=== PATIENT | male | born 1980 | race Caucasian/White ===

== ENCOUNTER 2017-10-16 19:08 | Emergency (ER) | payer BC ==
[~2017-10-16] VITALS: Ht 182.9 cm; Wt 90.6 kg
[~2017-10-16 19:08] MED LIST: MULT-506 PO
[2017-10-16 19:10] VITALS: TEMP 36.4; Ht 182.9 cm; Wt 90.6 kg
--- NOTE | 2017-10-16 19:37 | EMERGENCY ROOM VISIT NOTE ---
History Report prepared by Cinthya: Reza Werner Under the Supervision of: Dr. Clayton Flores M.D. First contact with patient: 19:14 Chief Complaint: MENTAL HEALTH EVALUATION Stated Complaint: DEPRESSED, PARANOID THOUGHTS WITH DRUG HX History of Present Illness The patient is a 36 year old male who presents to the Emergency Room with complaints of intermittent depression and "weird thoughts" that began a month ago. Patient is present with his fiance. Fiance states the patient's symptoms worsened yesterday. She states the patient feels like he is "being watched". She states the patient says there are "cameras in the TV that are recording him ", "cameras were placed in his truck", and "someone planted his SIM card in his phone". She adds the patient is hearing "voices from the radio" and that he thought a plane was following him after it flew over him today. Patient states that he used amphetamines today and yesterday. He states he took them today between 4 and 10 hours ago. Past medical history includes an opioid addiction. Patient states that the "adrenaline" allows birds to smell and follow him. Fiance states the patient believes her and his family are conspiring to get the patient into rehab. Patient states these occurrences are "a lot of coincidences ". Patient states he was in rehab at [facility] 2 years ago but denies being in rehab anytime prior to that. Patient states he takes Zoloft and Wellbutrin. Fiance states the patient has been taking Zoloft for 2 years since he was discharged from rehab. Patient adds he currently has a headache and heartburn. He states he uses pain pills off the street "for his addiction". He denies needing them for pain. Fiance adds the patient made a comment recently saying "he would be better off shooting himself". Patient denies SI, HI, IV drug use, or vision changes. Fiance adds that the patient has been picking his skin. Patient states he is a smoker. He denies alcohol use. Source of History: patient, spouse/significant other (Fiance) Onset: A month ago Position: head Timing: intermittent Modifying Factors (Relieving): other (None) Associated Symptoms: + headache Note: Positive heartburn. Negative SI and HI. Review of Systems See HPI for pertinent positives and negatives. A total of ten systems were reviewed and were otherwise negative. Past Medical & Surgical Medical Problems: (1) Asthma (2) Asthma, Unspecified Family History Hypertension Social History Smoking Status: Current Every Day Smoker Marital Status: single Housing Status: lives alone Occupation Status: employed Current/Historical Medications Scheduled Multivitamin (Multivitamin), 1 TAB PO DAILY Allergies Coded Allergies: No Known Allergies (Unverified , 08/06/13) Physical Exam Vital Signs Date Time Temp Pulse Resp B/P (MAP) Pulse Ox O2 Delivery O2 Flow Rate FiO2 10/16/17 21:27 87 18 128/82 98 10/16/17 19:10 36.4 104 18 134/85 99 Room Air Physical Exam GENERAL: Awake, alert, well-appearing, in no distress HENT: Normocephalic, atraumatic. Oropharynx unremarkable. EYES: Normal conjunctiva. Sclera non-icteric. NECK: Supple. No nuchal rigidity. RESPIRATORY: Clear to auscultation. No wheezes. Normal respiratory effort. CARDIAC: Normal rate. Normal rhythm. Extremities warm and well perfused. GI: Soft, non-distended. No tenderness to palpation. No rebound or guarding. No masses. RECTAL: Deferred. MUSCULOSKELETAL: Atraumatic. Chest examination reveals no tenderness. There is no CVA tenderness to palpation. LOWER EXTREMITIES: Calves are equal size bilaterally and non-tender. No edema NEURO: Normal sensorium. No sensory or motor deficits noted. SKIN: Small diffuse scabs without evidence fluctuance or erythema otherwise warm and dry; . No jaundice noted. States this is related to prior picking. Psych: No SI HI. Does endorse occasional auditory hallucinations but does not appear to be responding to external stimuli. Normal affect. Medical Decision & Procedures Laboratory Results 10/16/17 19:50 Red Blood Count 5.27, Mean Corpuscular Volume 81.6, Mean Corpuscular Hemoglobin 27.7, Mean Corpuscular Hemoglobin Concent 34.0, Mean Platelet Volume 8.5, Neutrophils (%) (Auto) 60.3, Lymphocytes (%) (Auto) 26.9, Monocytes (%) (Auto) 8.3, Eosinophils (%) (Auto) 3.7, Basophils (%) (Auto) 0.7, Neutrophils # (Auto) 4.08, Lymphocytes # (Auto) 1.82, Monocytes # (Auto) 0.56, Eosinophils # (Auto) 0.25, Basophils # (Auto) 0.05 10/16/17 19:50 Test 10/16/17 00:00 10/16/17 19:50 Urine Color DK YELLOW Urine Appearance TURBID (CLEAR) Urine pH 5.0 (4.5-7.5) Urine Specific [place] 1.034 (1.000-1.030) Urine Protein 1+ (NEG) Urine Glucose (UA) NEG (NEG) Urine Ketones TRACE (NEG) Urine Occult Blood NEG (NEG) Urine Nitrite NEG (NEG) Urine Bilirubin NEG (NEG) Urine Urobilinogen NEG (NEG) Urine Leukocyte Esterase NEG (NEG) Urine WBC (Auto) 5-10 /hpf (0-5) Urine RBC (Auto) 5-10 /hpf (0-4) Urine Hyaline Casts (Auto) 5-10 /lpf (0-5) Urine Epithelial Cells (Auto) 20-30 /lpf (0-5) Urine Bacteria (Auto) NEG (NEG) Urine Pathogenic Casts 0-3 GRANULAR CASTS /lpf (0) Urine Mucus PRESENT (NONE PRSENT) Urine Sperm (Auto) PRESENT (NOT PRESENT) Urine Opiates Screen NEG (NEG) Urine Methadone, Qualitative NEG (NEG) Urine Barbiturates NEG (NEG) Urine Phencyclidine (PCP) Level NEG (NEG) Ur Amphetamine/Methamphetamine POS (NEG) MDMA (Ecstasy) Screen POS (NEG) Urine Benzodiazepines Screen POS (NEG) Urine Cocaine Metabolite NEG (NEG) Urine Marijuana (THC) NEG (NEG) White Blood Count 6.77 K/uL (4.8-10.8) Red Blood Count 5.27 M/uL (4.7-6.1) Hemoglobin 14.6 g/dL (14.0-18.0) Hematocrit 43.0 % (42-52) Mean Corpuscular Volume 81.6 fL (80-100) Mean Corpuscular Hemoglobin 27.7 pg (25-34) Mean Corpuscular Hemoglobin Concent 34.0 g/dl (32-36) Platelet Count 242 K/uL (130-400) Mean Platelet Volume 8.5 fL (7.4-10.4) Neutrophils (%) (Auto) 60.3 % Lymphocytes (%) (Auto) 26.9 % Monocytes (%) (Auto) 8.3 % Eosinophils (%) (Auto) 3.7 % Basophils (%) (Auto) 0.7 % Neutrophils # (Auto) 4.08 K/uL (1.4-6.5) Lymphocytes # (Auto) 1.82 K/uL (1.2-3.4) Monocytes # (Auto) 0.56 K/uL (0.11-0.59) Eosinophils # (Auto) 0.25 K/uL (0-0.5) Basophils # (Auto) 0.05 K/uL (0-0.2) RDW Standard Deviation 35.6 fL (36.4-46.3) RDW Coefficient of Variation 12.1 % (11.5-14.5) Immature Granulocyte % (Auto) 0.1 % Immature Granulocyte # (Auto) 0.01 K/uL (0.00-0.02) Anion Gap 6.0 mmol/L (3-11) Est Creatinine Clear Calc Drug Dose 132.2 ml/min Estimated GFR () 129.6 Estimated GFR (Non- 111.9 BUN/Creatinine Ratio 17.7 (10-20) Calcium Level 8.4 mg/dl (8.5-10.1) Total Bilirubin 0.4 mg/dl (0.2-1) Direct Bilirubin 0.1 mg/dl (0-0.2) Aspartate Amino Transf (AST/SGOT) 9 U/L (15-37) Alanine Aminotransferase (ALT/SGPT) 21 U/L (12-78) Alkaline Phosphatase 84 U/L (45-117) Total Protein 6.7 gm/dl (6.4-8.2) Albumin 3.9 gm/dl (3.4-5.0) Thyroid Stimulating Hormone (TSH) 0.686 uIu/ml (0.300-4.500) Ethyl Alcohol mg/dL < 3.0 mg/dl (0-3) Laboratory results reviewed by [facility] ED Course 1913: The patient was evaluated in room A7. A complete history and physical exam was performed. 2138: I reevaluated the patient. Discussed results and discharge instructions. He verbalized understanding and agreement. The patient is ready for discharge. Medical Decision Prior records/ancillary studies reviewed. Triage Nursing notes reviewed. The patient's history was concerning for possible psychiatric disturbance. Differential diagnosis: Etiologies such as mood disorder, infection, hypoglycemia, electrolyte abnormalities, cardiac sources, intracerebral event, toxicologic, neurologic, as well as others were entertained. Patient presents complaining of issues with hallucinations and paranoia over the past month were significantly with the past day. Significantly he has a history of opioid abuse the pain pills for addiction along with amphetamine use. Endorses amphetamine use earlier today. Denies any acute homicidal ideation. Denies suicidal ideation at this time. He states that he feels somewhat anxious and concerned that people and things are watching him. Basic medical psychiatric workup was completed including thyroid studies and drug screening. Grossly unremarkable other than the positive drug screen. Do not see acute inpatient need for psychiatric care at this time. Believe his paranoia and hallucinations are likely secondary to his amphetamine/drug use.Discussed with patient and danielle who feel comfort with him going home with outpatient resources. Discharge. Medication Reconcilliation Current Medication List: was personally reviewed by me Blood Pressure Screening Patient's blood pressure: Normal blood pressure Blood pressure disposition: Did not require urgent referral Impression Primary Impression: Drug-induced paranoia or hallucinations Scribe Attestation The scribe's documentation has been prepared under my direction and personally reviewed by me in its entirety. I confirm that the note above accurately reflects all work, treatment, procedures, and medical decision making performed by me. Departure Information Dispostion Home / Self-Care Referrals Sinan Arriaga D.O. (PCP) Forms HOME CARE DOCUMENTATION FORM, IMPORTANT VISIT INFORMATION Patient Instructions My [facility] Additional Instructions At this time your blood work is reassuring however does indicate that she was admitted there was some drug use. This is likely the primary lumber driver of your paranoia and hallucinations. At this time the most important thing you can do is to abstain from drug use going forward. If at any time you feel unsafe or thoughts of harming herself or others please return for evaluation. Please seek continued assistance with drug abuse.
[2017-10-16 20:07] LABS: BASO % 0.7 %; BASO ABS # 0.05 K/uL (0-0.2); EOS % 3.7 %; EOS ABS # 0.25 K/uL (0-0.5); HEMOGLOBIN 14.6 g/dL (14.0-18.0); IG# 0.01 K/uL (0.00-0.02); LYMPH % 26.9 %; LYMPH ABS # 1.82 K/uL (1.2-3.4); MEAN CELL VOLUME 81.6 fL (80-100); MEAN CORPUSCULAR HEMOGLOBIN 27.7 pg (25-34); MEAN PLATELET VOLUME 8.5 fL (7.4-10.4); MONO % 8.3 %; MONO ABS # 0.56 K/uL (0.11-0.59); NEUT % 60.3 %; NEUT ABS # 4.08 K/uL (1.4-6.5); PLATELET COUNT 242 K/uL (130-400); RED CELL DISTRIBUTION WIDTH CV 12.1 % (11.5-14.5); RED CELL DISTRIBUTION WIDTH SD 35.6 fL (36.4-46.3); WHITE BLOOD COUNT 6.77 K/uL (4.8-10.8)
[2017-10-16 20:37] LABS: ALBUMIN 3.9 gm/dl (3.4-5.0); CALCIUM 8.4 mg/dl (8.5-10.1); CREATININE 0.84 mg/dl (0.60-1.40); TOTAL PROTEIN 6.7 gm/dl (6.4-8.2)
[2017-10-16 21:27] VITALS: BP 128/82; PULSE 87; O2SAT 98
== END 2017-10-16 21:30 | disposition home or self-care (01) ==
LOC: C.EDB 19:08 → C.EDA 21:30
DX: F19.959 Other psychoactive substance use, unspecified with psychoactive substance-induced psychotic disorder, unspecified (principal); F32.9 Major depressive disorder, single episode, unspecified; R51 Headache; R12 Heartburn; J45.909 Unspecified asthma, uncomplicated; F17.200 Nicotine dependence, unspecified, uncomplicated

== ENCOUNTER 2023-03-08 01:09 | Observation (INO) ==
[2023-03-08] MEDS ORDERED: ALBUT/IPRATROP 3MG/0.5MG NEB 3 ML VIAL NEB STA ×2 (01:52→04:14)
[2023-03-08 02:18] LABS: Adenovirus PCR Not Detected (NotDetected); Bordetella parapertussis PCR Not Detected (NotDetected); Bordetella pertussis PCR Not Detected (NotDetected); Chlamydia pneumoniae PCR Not Detected (NotDetected); Coronavirus 229E PCR Not Detected (NotDetected); Coronavirus CoV-2 (COVID19)PCR Not Detected (NotDetected); Coronavirus HKU1 PCR Not Detected (NotDetected); Coronavirus NL63 PCR Not Detected (NotDetected); Coronavirus OC43PCR Not Detected (NotDetected); Human Metapneumovirus PCR Not Detected (NotDetected); Influenza A PCR Not Detected (NotDetected); Influenza B PCR Not Detected (NotDetected); Mycoplasma pneumoniae PCR Not Detected (NotDetected); Parainfluenza Virus 1 PCR Not Detected (NotDetected); Parainfluenza Virus 2 PCR Not Detected (NotDetected); Parainfluenza Virus 3 PCR Not Detected (NotDetected); Parainfluenza Virus 4 PCR Not Detected (NotDetected); Respiratory Syncytial VirusPCR Not Detected (NotDetected)
[2023-03-08 02:25] LABS: Rhinovirus/Enterovirus PCR DETECTED (NotDetected)
--- NOTE | 2023-03-08 02:47 | Emergency Department Note ---
Impression & Plan Dyspnea, Pneumonia, URI (upper respiratory infection), Hyperglycemia, Hemoptysis ED Provider Note ED Provider Note NAME: KAVEH PIZANO AGE:42 SEX: Male : 1980 ARRIVES VIA: private vehicle INFORMANT: Patient ED PROVIDER(s): Dania Richardson DO CHIEF COMPLAINT: Increased shortness of breath HPI: This is a 42-year-old male who presents emergency room due to increased shortness of breath today. Patient states he said cough and congestive symptoms over the last 2 to 3 days. He states symptoms first began with subjective fevers and chills and diffuse myalgias/arthralgias. He states he is also had left-sided chest tightness and pain. He states he feels is harder to breathe with exertion as well as trying to lay flat. Patient is a remote smoker, no history of asthma or COPD. No known sick contact. He states he has had a decreased appetite, no overt vomiting and diarrhea. PAST MEDICAL HISTORY:See Below PAST SURGICAL HISTORY:See Below FAMILY HISTORY:See Below SOCIAL HISTORY:See Below HOME MEDICATIONS:See Below ALLERGIES:See Below VITALS:See Below PHYSICAL EXAMINATION: GENERAL: alert, well appearing, well nourished, no distress, non-toxic EYE EXAM: normal conjunctiva, PERRL and EOM's grossly intact OROPHARYNX: no exudate, no erythema, lips, buccal mucosa, and tongue normal and mucous membranes are moist NECK: supple, no nuchal rigidity, no adenopathy, non-tender LUNGS: Clear to auscultation. Normal chest wall mechanics, no w/r, decreased breath sounds noted at left base with fine rales at the left base also; no tachypnea, no retractions HEART: no murmurs, S1 normal and S2 normal ABDOMEN: abdomen soft, non-tender, normo-active bowel sounds, no masses, no rebound or guarding. BACK: Back is symmetrical on inspection and there is no deformity, no midline tenderness, no CVA tenderness. SKIN: no rashes, petechiae, orbruising UPPER EXTREMITIES: upper extremities are grossly normal. FROM, nml pulses b/l. LOWER EXTREMITIES: No pitting edema. FROM, nml pulses b/l. NEURO EXAM: Normal sensorium, cranial nerves II-XII grossly intact, normal speech, no facial droop,nogross weakness of arms, no gross weakness of legs. Gross sensation intact. No ataxia. Vital Signs: reviewed and remarkable Differential Diagnosis: pneumonia, bronchitis, COPD/Asthma exacerbation, pneumothorax, pulmonary embolism, congestive heart failure, acute coronary syndrome, as well as others were considered MEDICAL DECISION MAKING: This is a 42 yo male who presents with flu like symptoms over the last 3 days and increased SOB and chest pain this evening. VS stable, tachycardia noted, no hypoxia on arrival. Labs drawn and sent, IV established, EKG and CXR performed and interpreted at bedside, and patient placed on telemetry. CXR with concerning findings for pna. Patient given IVF, neb tx, tylenol, toradol, decadron, and began feeling improved. He was ambulatory here and tolerated po. After several hours of observation and treatment here, patient reported hemoptysis which he had not previously disclosed. No use of antiplatelet or anticoagulation medications. After discussion he was sent for CT chest which revealed multilobar pna. Given hx of DM and former smoker and more extensive pna seen on CT, we discussed additional inpatient evaluation. Case discussed with [place] hospitalist for additional evaluation and mgmt. Consultation(s): 814: Discussed with Dr. Liu, [place] hospitalist team, for additional evaluation and mgmt. ER Treatment Provided: See below 0630: Patient states feeling improved and able to lay back after nebs and medications. He was able to walk without hypoxia or increased WOB. Patient now also stating he had hemoptysis at home before arrival and had 2 episodes here that were not reported to me by the patient until this time. We discussed the need for further imaging in light of this. CT chest added. Diagnostics Interpreted By Me: -ECG: Sinus tachycardia at 102, normal axis, normal intervals, no acute ST/T wave changes -Cardiac Monitoring: An order was placed for continuous cardiac monitoring. The monitor shows a rate of 98 with normal sinus rhythm. -Laboratory studies: As stated above and show below. -Imaging studies: X-ray Chest: A single view study of the chest was reviewed and was negative for cardiomegaly, effusion, pulmonary edema, or wide mediastinum. Infiltrate noted in the left lung. 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 Preferred Language: Estonian Communication Ability: Effective Poker Room Manager Required: No Beliefs That Will Affect Care: None marital status: Current Living Situation: Spouse Other Information That Helps Us Care for You: No Feels Safe at Home: Yes Safety Concerns: Feels Safe At This Time Assistive Devices: Glasses Allergies Allergies Allergy/AdvReac Type Severity Reaction Status Date / Time No Known Allergies Allergy Verified 03/08/23 02:51 Home Meds Home Medications Medication Instructions Recorded Confirmed ibuprofen 200 mg tablet (Advil) 200 - 600 mg PO DIRECTED PRN 12/07/17 03/08/23 Pain multivitamin 1 tab PO DAILY 12/07/17 03/08/23 omeprazole 40 mg capsule,delayed 40 mg PO DAILY PRN Acid Reflux 12/07/17 03/08/23 release cetirizine 10 mg tablet (Zyrtec) 10 mg PO DAILY PRN allergies 02/23/23 03/08/23 fluoxetine 40 mg capsule 80 mg PO QAM 02/23/23 03/08/23 losartan 50 mg tablet 50 mg PO DAILY 02/23/23 03/08/23 metformin 500 mg tablet 500 mg PO QAM 02/23/23 03/08/23 Results & Data (ED) Vital Signs Vital Signs - 24 hr 03/08/23 01:13 03/08/23 02:35 03/08/23 02:35 Temperature 37.2 C Temperature Source Oral Pulse Rate 109 H 110 H 109 H Pulse Rate [Exercises] Pulse Rate [Recovery] Pulse Rate [Resting] Pulse Rate [Right Finger] Pulse Rate from SpO2 Sensor Pulse Rhythm [Right Finger] Respiratory Rate 20 12 Respiratory Rate [Exercises] Respiratory Rate [Recovery] Respiratory Rate [Resting] Respiratory Effort / Characteristics Non-Labored Spontaneous Respiratory Depth Normal Blood Pressure 146/80 H 138/80 Blood Pressure [Right Arm] Blood Pressure Mean 102 99 Blood Pressure Mean [Right Arm] Pulse Oximetry 97 92 Pulse Oximetry [Exercises] Pulse Oximetry [Recovery] Pulse Oximetry [Resting] Oxygen Delivery Method Room Air Sepsis Recent Fever Within 48 Hours Yes Sepsis New/Unexplained Change in Mental Status N/A Sepsis Action Taken by Nursing No Action Required 03/08/23 03:00 03/08/23 03:30 03/08/23 04:00 Temperature Temperature Source Pulse Rate Pulse Rate [Exercises] Pulse Rate [Recovery] Pulse Rate [Resting] Pulse Rate [Right Finger] Pulse Rate from SpO2 Sensor 107 H 103 H 103 H Pulse Rhythm [Right Finger] Respiratory Rate 18 16 18 Respiratory Rate [Exercises] Respiratory Rate [Recovery] Respiratory Rate [Resting] Respiratory Effort / Characteristics Respiratory Depth Blood Pressure 144/91 H 103/73 157/99 H Blood Pressure [Right Arm] Blood Pressure Mean 108 83 118 Blood Pressure Mean [Right Arm] Pulse Oximetry 93 93 92 Pulse Oximetry [Exercises] Pulse Oximetry [Recovery] Pulse Oximetry [Resting] Oxygen Delivery Method Sepsis Recent Fever Within 48 Hours Sepsis New/Unexplained Change in Mental Status Sepsis Action Taken by Nursing 03/08/23 04:36 03/08/23 07:01 03/08/23 07:23 Temperature Temperature Source Pulse Rate Pulse Rate [Exercises] 95 H Pulse Rate [Recovery] 89 Pulse Rate [Resting] 85 Pulse Rate [Right Finger] 83 Pulse Rate from SpO2 Sensor 99 H Pulse Rhythm [Right Finger] Regular Respiratory Rate 12 Respiratory Rate [Exercises] 20 Respiratory Rate [Recovery] 18 Respiratory Rate [Resting] 18 Respiratory Effort / Characteristics Respiratory Depth Blood Pressure Blood Pressure [Right Arm] 139/79 Blood Pressure Mean Blood Pressure Mean [Right Arm] 99 Pulse Oximetry 93 95 Pulse Oximetry [Exercises] 94 Pulse Oximetry [Recovery] 95 Pulse Oximetry [Resting] 98 Oxygen Delivery Method Room Air Room Air Sepsis Recent Fever Within 48 Hours Sepsis New/Unexplained Change in Mental Status Sepsis Action Taken by Nursing Laboratory Data 03/08/23 02:17 03/08/23 02:17 Lab Results 03/08/23 03/08/23 03/08/23 Range/Units 01:15 02:17 08:19 WBC 12.14 H (4.8-10.8) K/ul RBC 4.73 (4.70-6.10) M/uL Hgb 13.0 L (14.0-18.0) g/dl Hct 39.6 L (42.0-52.0) % MCV 83.7 (80.0-100.0) fL MCH 27.5 (25.0-34.0) pg MCHC 32.8 (32.0-36.0) g/dL RDW Std Deviation 37.0 (36.4-46.3) fL RDW Coeff of Rosita 12.1 (11.5-14.5) % Plt Count 207 (130-400) K/uL MPV 9.2 L (9.4-12.4) fL Immature Gran % (Auto) 0.9 % Neut % (Auto) 84.1 % Lymph % (Auto) 5.8 % Jerauld % (Auto) 8.6 % Eos % (Auto) 0.3 % Baso % (Auto) 0.3 % Neut # (Auto) 10.19 H (1.40-6.50) K/uL Lymph # (Auto) 0.71 L (1.20-3.40) K/uL Jerauld # (Auto) 1.05 H (0.11-0.59) K/uL Eos # (Auto) 0.04 (0.00-0.50) K/uL Baso # (Auto) 0.04 (0.00-0.20) K/uL Immature Gran # (Auto) 0.11 (0.01-0.20) K/uL Dohle Bodies 1+ PT 10.9 (9.0-12.0) Seconds INR 1.0 (0.9-1.1) APTT 36 H (21-31) Seconds PTT Ratio 1.3 Sodium 134 L (136-145) mmol/L Potassium 4.2 (3.5-5.1) mmol/L Chloride 103 (98-107) mmol/L Carbon Dioxide 22 (21-32) mmol/L Anion Gap 9 (3-11) BUN 8 (6-23) mg/dl Creatinine 0.63 (0.6-1.4) mg/dl Est Cr Clr Drug Dosing 199.9 ml/min Est GFR ( Amer) 139.9 ml/min Est GFR (Non-Af Amer) 120.7 ml/min BUN/Creatinine Ratio 12.7 (10-20) Glucose 229 H (70-99(Fasting)) mg/dl Calcium 9.5 (8.6-10.3) mg/dl Magnesium 1.7 (1.7-2.4) mg/dl Total Bilirubin 1.0 (0.2-1.0) mg/dl AST 13 (13-39) U/L ALT 54 H (7-52) U/L Alkaline Phosphatase 73 (34-104) U/L Troponin I High Sens 4.7 (0-20) pg/ml Total Protein 7.0 (6.0-8.3) gm/dl Albumin 4.2 (3.4-5.0) gm/dl Globulin 2.8 (2.5-4.0) gm/dl Albumin/Globulin Ratio 1.5 (0.9-2) Lipase 7 L (11-82) U/L Procalcitonin 0.58 H (0-0.5) ng/ml Nasal Screen MRSA (PCR) Negative (Negative) Adenovirus (PCR) Not Detected (NotDetected) B. pertussis DNA (PCR) Not Detected (NotDetected) B.parapertussis DNA PCR Not Detected (NotDetected) C. pneumoniae DNA (PCR) Not Detected (NotDetected) Coronavirus OC43 (PCR) Not Detected (NotDetected) Coronavirus HKU1 (PCR) Not Detected (NotDetected) Coronavirus 229E (PCR) Not Detected (NotDetected) SARS-CoV-2 (PCR) Not Detected (NotDetected) Coronavirus NL63 (PCR) Not Detected (NotDetected) Human Metapneumovir PCR Not Detected (NotDetected) Influenza Type A (PCR) Not Detected (NotDetected) Influenza Type B (PCR) Not Detected (NotDetected) M. pneumoniae (PCR) Not Detected (NotDetected) Parainfluenza 1 (PCR) Not Detected (NotDetected) Parainfluenza 2 (PCR) Not Detected (NotDetected) Parainfluenza 3 (PCR) Not Detected (NotDetected) Parainfluenza 4 (PCR) Not Detected (NotDetected) RSV (PCR) Not Detected (NotDetected) Entero/Rhino (PCR) DETECTED A* (NotDetected) Administered Medications Acetaminophen (Acetaminophen 325 Mg Tab) 650 mg PO Q4H PRN PRN Reason: pain/fever Stop: 04/07/23 11:00 Last Admin: 03/08/23 21:56 Dose: 650 mg Documented By: LUIS ARMANDO Admin: 03/08/23 16:44 Dose: 650 mg Documented By: Admin: 03/08/23 11:45 Dose: 650 mg Documented By: MAYELA Fluoxetine HCl (Fluoxetine Hcl 20 Mg Cap) 40 mg PO QAM [facility] Stop: 04/07/23 11:00 Last Admin: 03/08/23 12:02 Dose: 40 mg Documented By: MAYELA Insulin Aspart (Insulin Aspart Per Unit Charge) 0 units SC ACHS [facility] Stop: 04/07/23 11:29 Last Admin: 03/08/23 21:28 Dose: Not Given Documented By: LUIS ARMANDO Co-signed By: JUAN Admin: 03/08/23 16:52 Dose: 5 units Documented By: MAYELA Co-signed By: JO Admin: 03/08/23 11:46 Dose: 9 units Documented By: MAYELA Co-signed By: JO Insulin Glargine (Lantus Per Unit Charge) 15 units SQ DAILY [facility] Stop: 04/07/23 11:00 Last Admin: 03/08/23 11:46 Dose: 15 units Documented By: MAYELA Co-signed By: JO Losartan Potassium (Losartan Potassium 50 Mg Tab) 50 mg PO DAILY [facility] Stop: 04/07/23 11:00 Last Admin: 03/08/23 12:02 Dose: 50 mg Documented By: MAYELA Melatonin (Melatonin 3 Mg Tab) 3 mg PO HS PRN PRN Reason: Insomnia Stop: 04/07/23 11:00 Last Admin: 03/08/23 21:55 Dose: 3 mg Documented By: LUIS ARMANDO Menthol (Cough Drop (Sugar Free) Shahzad 24 Shahzad/1 Box) 1 shahzad BUCCAL PRN PRN PRN Reason: Sore Throat Stop: 04/07/23 16:44 Last Admin: 03/08/23 16:52 Dose: 1 shahzad Documented By: MAYELA Discontinued Medications Albuterol (Albut/Ipratrop 3mg/0.5mg Neb 3 Ml Vial) 3 ml NEB NOW STA; Protocol Stop: 03/08/23 01:53 Last Admin: 03/08/23 02:16 Dose: 3 ml Documented By: SHANNAN Albuterol (Albut/Ipratrop 3mg/0.5mg Neb 3 Ml Vial) 3 ml NEB NOW STA; Protocol Stop: 03/08/23 04:15 Last Admin: 03/08/23 04:37 Dose: 3 ml Documented By: SHANNAN Azithromycin (Azithromycin 250 Mg Tab) 500 mg PO NOW ONE Stop: 03/08/23 07:50 Last Admin: 03/08/23 08:11 Dose: 500 mg Documented By: VAL Dexamethasone Sodium Phosphate (DexamethasonePf 10 Mg/Ml Vial) 10 mg IV NOW ONE Stop: 03/08/23 02:50 Last Admin: 03/08/23 03:06 Dose: 10 mg Documented By: SHANNAN Sodium Chloride (Nss) 1,000 mls @ 999 mls/hr IV .Q1H1M ONE Stop: 03/08/23 03:54 Last Infusion: 03/08/23 06:45 Dose: Infused Documented By: Admin: 03/08/23 03:06 Dose: 999 mls/hr Documented By: SHANNAN Acetaminophen (Ofirmev) 1,000 mg in 100 mls @ 400 mls/hr IV NOW STA Stop: 03/08/23 05:12 Last Infusion: 03/08/23 06:45 Dose: Infused Documented By: Admin: 03/08/23 05:24 Dose: 400 mls/hr Documented By: SHANNAN Sodium Chloride (Nss) 1,000 mls @ 999 mls/hr IV .Q1H1M ONE Stop: 03/08/23 05:58 Last Infusion: 03/08/23 06:45 Dose: Infused Documented By: Admin: 03/08/23 05:24 Dose: 999 mls/hr Documented By: SHANNAN Ceftriaxone Sodium (Rocephin) 2,000 mg in 50 mls @ 100 mls/hr IV NOW STA Stop: 03/08/23 08:18 Last Infusion: 03/08/23 09:30 Dose: Infused Documented By: Admin: 03/08/23 08:11 Dose: 100 mls/hr Documented By: VAL Ioversol (Optiray 320 125ml) 119 ml IV ONCE ONE Stop: 03/08/23 07:10 Last Admin: 03/08/23 07:09 Dose: 119 ml Documented By: TOM Ketorolac Tromethamine (Ketorolac Tromethamine 15 Mg/Ml Vial) 10 mg IV NOW ONE Stop: 03/08/23 02:51 Last Admin: 03/08/23 03:06 Dose: 10 mg Documented By: SHANNAN Imaging Data Radiologist's Impression: Chest X-Ray 03/08/23 01:23 XR chest 1V not portable CLINICAL HISTORY: Cough. COMPARISON STUDY: Chest radiograph December 07, 2017. FINDINGS: Lung volumes are normal. Left mid lung and basilar consolidation is present. There is no pneumothorax or pleural effusion. There is mild enlargement of the cardiac silhouette. Mediastinal contours are normal. There is no evidence for pulmonary edema. IMPRESSION: Left midlung and basilar consolidation consistent suggestive of pneumonia. Post treatment radiographs to ensure resolution are recommended. ACT 112: Negative or not required by law. Electronically signed by: Manny Lay M.D. 03/08/2023 6:48 AM Chest CTA 03/08/23 06:50 CT ANGIOGRAPHY OF THE CHEST, PULMONARY EMBOLUS PROTOCOL CLINICAL HISTORY: Cough. COMPARISON STUDY: Chest radiograph December 07, 2017 and March 08, 2023. TECHNIQUE: Following IV administration of 119 mL of Optiray, helical axial images of the chest were obtained utilizing the pulmonary embolus protocol. Maximal intensity projections and sagittal and coronal reformats were viewed on an independent 3D workstation. IV contrast was administered without complication. Automated exposure control was utilized for the study. A dose lowering technique was utilized adhering to the principles of ALARA. CT DOSE: 1947.22 mGy.cm FINDINGS: No pulmonary emboli are identified. Mild dilatation of the central pulmonary arteries is present. There is no thoracic aortic dissection. There is mild cardiomegaly. No pericardial effusion is present. Mildly enlarged left hilar lymph node measures 1.6 x 1.4 cm. There are prominent mediastinal lymph nodes. No pneumothorax or pleural effusion is present. No central obstructing mass is noted. There is extensive multifocal consolidation within the left upper and left lower lobes. No cavitation is present. There is no associated pleural effusion. A 1.7 cm nodular right middle lobe opacity on image 100 of 249 is present. No acute fractures within the bony thorax are present. There is hepatic steatosis. Mild splenomegaly is noted. IMPRESSION: 1. No pulmonary emboli identified. 2. Extensive left upper and left lower lobe airspace opacity suggestive of multifocal pneumonia. 3. 1.7 cm nodular right middle lobe opacity. This may be infectious or atelectatic. Although less likely, a neoplasm cannot be completely excluded. A follow-up chest CT in one to 2 months to ensure resolution is recommended. 4. Mildly enlarged mediastinal and left hilar lymph nodes which are likely reactive but should be assessed on follow-up chest CT to ensure resolution. 5. Mild cardiomegaly. 5. Hepatic steatosis. ACT 112: Positive. There are findings on this exam that require communication between the performing entity and the patient following Patient Test Result Information Act ([place] Act 112) guidelines. Electronically signed by: Manny Lay M.D. 03/08/2023 7:34 AM Discharge Plan Visit Data Chief Complaint: Illness Stated Complaint: MILD TEMP,ACHES/PAINS,SOB,CRACKLING ON EXHALE ED Provider: Dania Richardson Discharge Problem: Dyspnea, Pneumonia, URI (upper respiratory infection), Hyperglycemia, Hemoptysis Patient Disposition: Admitted As Inpatient Discharge Instructions Interventions: ED Discharge Assessment Last Done: 03/08/23 10:48
[2023-03-08] MEDS ORDERED: dexAMETHasone**PF** 10 MG/ML VIAL IV ONE (02:49)
[2023-03-08] MEDS ORDERED: KETOROLAC TROMETHAMINE 15 MG/ML VIAL IV ONE (02:50)
[2023-03-08] MEDS ORDERED: SODIUM CHLORIDE 0.9% 1,000 ML IV ONE ×2 (02:54→04:58)
[2023-03-08 02:56] LABS: Albumin Globulin Ratio 1.5 (0.9-2); Albumin Level 4.2 gm/dl (3.4-5.0); BUN Creatinine Ratio 12.7 (10-20); Calcium 9.5 mg/dl (8.6-10.3); Creatinine Clr Calc Pharmacy 199.9 ml/min; Est GFR (African American) 139.9 ml/min; Est GFR (Non-African American) 120.7 ml/min; Globulin 2.8 gm/dl (2.5-4.0); Magnesium 1.7 mg/dl (1.7-2.4); Potassium 4.2 mmol/L (3.5-5.1)
[2023-03-08 03:03] LABS: Troponin I High Sensitivity 4.7 pg/ml (0-20)
[2023-03-08 03:04] LABS: Hematocrit (blood only) 39.6 % (42.0-52.0); Mean Corpuscular Hemoglobin 27.5 pg (25.0-34.0); Mean Corpuscular Hgb Conc 32.8 g/dL (32.0-36.0); Mean Corpuscular Volume 83.7 fL (80.0-100.0); Mean Platelet Volume 9.2 fL (9.4-12.4); Platelet Count 207 K/uL (130-400); RDW Coefficient of Variation 12.1 % (11.5-14.5); Red Blood Count 4.73 M/uL (4.70-6.10); White Blood Count 12.14 K/ul (4.8-10.8)
[2023-03-08 03:30] LABS: Basophils # (auto) 0.04 K/uL (0.00-0.20); Basophils % (auto) 0.3 %; Dohle Bodies 1+; Eosinophils # (auto) 0.04 K/uL (0.00-0.50); Eosinophils % (auto) 0.3 %; Immature Granulocytes # (auto) 0.11 K/uL (0.01-0.20); Immature Granulocytes % (auto) 0.9 %; Lymphocytes # (auto) 0.71 K/uL (1.20-3.40); Lymphocytes % (auto) 5.8 %; Monocytes # (auto) 1.05 K/uL (0.11-0.59); Monocytes % (auto) 8.6 %; Neutrophils # (auto) 10.19 K/uL (1.40-6.50); Neutrophils % (auto) 84.1 %
[2023-03-08] MEDS ORDERED: ACETAMINOPHEN 1,000 MG/100 ML VIAL IV STA (04:58)
--- NOTE | 2023-03-08 06:50 | XRay Report ---
XR chest 1V not portable CLINICAL HISTORY: Cough. COMPARISON STUDY: Chest radiograph December 07, 2017. FINDINGS: Lung volumes are normal. Left mid lung and basilar consolidation is present. There is no pn eumothorax or pleural effusion. There is mild enlargement of the cardiac silhouette. Mediastinal cont ours are normal. There is no evidence for pulmonary edema. IMPRESSION: Left midlung and basilar consolidation consistent suggestive of pneumonia. Post treatment radiographs to ensure resolution are recommended. ACT 112: Negative or not required by law. Electronically signed by: Manny Lay M.D. 03/08/2023 6:48 AM
[2023-03-08] MEDS ORDERED: OPTIRAY 320 125ml IV ONE (07:09)
--- NOTE | 2023-03-08 07:35 | CT Scan Report ---
CT ANGIOGRAPHY OF THE CHEST, PULMONARY EMBOLUS PROTOCOL CLINICAL HISTORY: Cough. COMPARISON STUDY: Chest radiograph December 07, 2017 and March 08, 2023. TECHNIQUE: Following IV administration of 119 mL of Optiray, helical axial images of the chest were o btained utilizing the pulmonary embolus protocol. Maximal intensity projections and sagittal and cor onal reformats were viewed on an independent 3D workstation. IV contrast was administered without co mplication. Automated exposure control was utilized for the study. A dose lowering technique was ut ilized adhering to the principles of ALARA. CT DOSE: 1947.22 mGy.cm FINDINGS: No pulmonary emboli are identified. Mild dilatation of the central pulmonary arteries is p resent. There is no thoracic aortic dissection. There is mild cardiomegaly. No pericardial effusion i s present. Mildly enlarged left hilar lymph node measures 1.6 x 1.4 cm. There are prominent mediastin al lymph nodes. No pneumothorax or pleural effusion is present. No central obstructing mass is noted. There is extensive multifocal consolidation within the left upper and left lower lobes. No cavitatio n is present. There is no associated pleural effusion. A 1.7 cm nodular right middle lobe opacity on image 100 of 249 is present. No acute fractures within the bony thorax are present. There is hepatic steatosis. Mild splenomegaly is noted. IMPRESSION: 1. No pulmonary emboli identified. 2. Extensive left upper and left lower lobe airspace opacity suggestive of multifocal pneumonia. 3. 1.7 cm nodular right middle lobe opacity. This may be infectious or atelectatic. Although less lik sena, a neoplasm cannot be completely excluded. A follow-up chest CT in one to 2 months to ensure reso lution is recommended. 4. Mildly enlarged mediastinal and left hilar lymph nodes which are likely reactive but should be ass essed on follow-up chest CT to ensure resolution. 5. Mild cardiomegaly. 5. Hepatic steatosis. ACT 112: Positive. There are findings on this exam that require communication between the performing entity and the patient following Patient Test Result Information Act ([place] Act 112) guidelines. Electronically signed by: Manny Lay M.D. 03/08/2023 7:34 AM
[2023-03-08] MEDS ORDERED: AZITHROMYCIN 250 MG TAB PO ONE (07:49)
[2023-03-08] MEDS ORDERED: cefTRIAXone SODIUM 2,000 MG/50 ML BAG IV STA (07:49)
--- NOTE | 2023-03-08 08:26 | History & Physical Report ---
Date of Service March 08, 2023 Assessment & Plan (1) Pneumonia: Plan: Severe multifocal left sided pneumonia - ALEXEY, LLL, I personally reviewed the chest CT films and there is extensive dense consolidation, not visible on CXR. Fortunately not hypoxic -minor hemoptysis associated with this but fairly significant amount, warrants caution -pleuritic central and L back chest pain due to pneumonia -rhinovirus/enterovirus infection -stated history of asthma, mild, not in exacerbation -ceftriaxone and azithromycin - first doses given in ED this am -sputum culture, nasal MRSA - resulted negative, procal mildly elevated at 0.58, legionella urine Ag -IV fluids given in ED -dexamethasone 10 mg IV given in ED, helped his pleuritic pain, hold off on further steroids for now -APAP and toradol (4 doses PRN ordered) for pain (2) Hemoptysis: Plan: Related to severe pneumonia, CTA negative for PE. L middle and lower lobe so TB unlikely. Trying to quantify - he had small amount yesterday thought it was from drinking red gatorade, today in ED had two episodes each were bright red mixed with spit/sputum maybe 2 Tbsp each time -consult pulmonary - discussed with Dr. Frey -check PT/PTT - PT/INR normal. PTT minimally elevated, platelets normal. Not on anticoagulant or aspirin (3) Asthma: Plan: Mild, uses PRN albuterol occasionally at home -not in exacerbation -PRN bronchodilators if wheezing/bronchospasm develops (4) Hepatic steatosis: Plan: Noted on chest CT. Obesity with BMI 35 Query alcohol use. Likely component of NAFLD, has metabolic syndrome (5) Hypertension associated with diabetes: Plan: -continue losartan 50 mg He had question about mild cardiomegaly read on chest CT - referred to primary care for follow up. Has history of treated hypertension. No acute cardiac condition and presentation not consistent with heart failure. (6) Diabetes: Plan: Home med - metformin 500 mg daily. Held -hyperglycemic due to stress of illness, dexamethasone 10 mg in ED -check A1c -ordered diabetic diet, glucose checks, glargine 15u qAM (conservative because not on insulin and most steroid-hyperglycemia will be postprandial), short acting insulin CF 20, carb ratio 7 based on his weight -glucose checks qAC and HS (7) Pulmonary nodule: Plan: prior smoker with RML pulmonary nodule on CT - hopefully infectious or inflammatory but cannot r/o malignancy. Has lymphadenopathy, may be reactive to pneumonia process -follow up CT recommended in 2 months. I discussed this with him Plan Other issues -minimal hyponatremia, BMP in AM DVT ppx: chemoppx contraindicated because of hemoptysis, SCDs for now Admission and Anticipated Discharge Date Anticipated date of discharge: 03/10/23 History of Present Illness Chief Complaint: shortness of breath Primary Care Provider: Alexy Motley is a 42-year-old man with history of type 2 diabetes on metformin, hypertension who was in his usual state of health until about 2 weeks ago when he caught a cold from his toddler. She is in daycare and has had viral symptoms recently. This was a typical URI with head cold type symptoms and cough he did take an unspecified oral antibiotic as an outpatient. He then was okay until Wednesday night which is 3 days ago when he developed symptoms of fever chills myalgias arthralgias and cough. Last night he became short of breath, he was feeling extremely short of breath when lying down and he also developed central and left-sided specifically left posterior chest pain with breathing. He came to the ED for evaluation he was positive for rhinovirus and enterovirus there is a question of left-sided infiltrate on his chest x-ray but it did not look severe. He was not hypoxic he was given nebulizers Toradol and Tylenol as well as IV fluids. He then told the ED staff he had been having hemoptysis. He had 2 episodes of hemoptysis in the ED each was described as bright red bloody spit/sputum approximately [address] angiogram of the chest was obtained and it was negative for pulmonary embolism but he had dense extensive left upper lobe and left lower lobe consolidation consistent with a pneumonia. Ceftriaxone and azithromycin were started and he was given 10 mg of IV dexamethasone. With the ED treatment his left-sided chest and back pain has significantly improved. He feels like his breathing is also improved he has had no other associated symptoms including no rashes, no arthritis, no nausea vomiting or diarrhea, no abdominal pain, no dysuria, no leg swelling Allergies Allergy/AdvReac Type Severity Reaction Status Date / Time No Known Allergies Allergy Verified 03/08/23 02:51 Home Medications Medication Instructions Recorded Confirmed Type ibuprofen 200 mg tablet (Advil) 200 - 600 mg PO DIRECTED PRN 12/07/17 03/08/23 History Pain multivitamin 1 tab PO DAILY 12/07/17 03/08/23 History omeprazole 40 mg capsule,delayed 40 mg PO DAILY PRN Acid Reflux 12/07/17 03/08/23 History release cetirizine 10 mg tablet (Zyrtec) 10 mg PO DAILY PRN allergies 02/23/23 03/08/23 History fluoxetine 40 mg capsule 80 mg PO QAM 02/23/23 03/08/23 History losartan 50 mg tablet 50 mg PO DAILY 02/23/23 03/08/23 History metformin 500 mg tablet 500 mg PO QAM 02/23/23 03/08/23 History Past Med/Surg History Medical History (Updated 03/08/23 @ 17:41 by Florida Liu MD) Umbilical hernia Diabetes type 2, controlled Hypertension associated with diabetes Pulmonary nodule Myalgia Asthma Surgical History (Updated 03/08/23 @ 17:41 by Florida Liu MD) History of ankle surgery H/O right knee surgery Family History Other No significant family history Social History Smoking Status: Former smoker Tobacco Type: Cigarettes Do You Dip or Chew Tobacco: No; Hx Alcohol Use: No Hx Substance Use: Yes Last Used Substance Other:: 5 years sober Preferred Language: Monegasque Communication Ability: Effective Ticket Manager Required: No Beliefs That Will Affect Care: None marital status: Current Living Situation: Spouse Other Information That Helps Us Care for You: No Feels Safe at Home: Yes Safety Concerns: Feels Safe At This Time Assistive Devices: Glasses Review of Systems Review of Systems: All systems reviewed & are unremarkable except as noted in HPI & below Physical Exam Physical Exam: PHYSICAL EXAMINATION Last 24h vital signs reviewed, see documentation in flowsheet General: comfortable appearing, no distress. sitting up on side of ED gurney fairly well-appearing HEENT: Normocephalic, atraumatic, pupils round and equal, sclerae anicteric, no conjunctival injection, moist mucus membranes Lungs: Normal respiratory effort. diminished in left mid and basilar serrano with some coarse crackles and tubular sounds. No RRW Heart: Regular rate and rhythm, no murmurs. No JVD Abdomen: Soft, nontender, nondistended. Bowel sounds present. Extremities: Warm, dry, well-perfused. No extremity edema. skin: Warm dry no rashes Neuro: Alert and oriented x 4, face symmetric, moves 4 extremities well Psych: Normal affect and behavior Results & Data Results & Data Vital Signs (Past 12 Hours) Vital Signs Temp Pulse Pulse Pulse Pulse Pulse Resp 03/08/23 07:23 95 H 89 85 03/08/23 07:01 83 12 03/08/23 04:36 03/08/23 04:00 18 03/08/23 03:30 16 03/08/23 03:00 18 03/08/23 02:35 109 H 12 03/08/23 02:35 110 H 03/08/23 01:13 37.2 C 109 H 20 Resp Resp Resp BP BP Pulse Ox Pulse Ox 03/08/23 07:23 20 18 18 94 03/08/23 07:01 139/79 95 03/08/23 04:36 93 03/08/23 04:00 157/99 H 92 03/08/23 03:30 103/73 93 03/08/23 03:00 144/91 H 93 03/08/23 02:35 138/80 92 03/08/23 02:35 03/08/23 01:13 146/80 H 97 Pulse Ox Pulse Ox O2 Del Method 03/08/23 07:23 95 98 Room Air 03/08/23 07:01 Room Air 03/08/23 04:36 03/08/23 04:00 03/08/23 03:30 03/08/23 03:00 03/08/23 02:35 03/08/23 02:35 03/08/23 01:13 Room Air Laboratory Results 03/08/23 03/08/23 Range/Units 02:17 01:15 WBC 12.14 H (4.8-10.8) K/ul RBC 4.73 (4.70-6.10) M/uL Hgb 13.0 L (14.0-18.0) g/dl Hct 39.6 L (42.0-52.0) % MCV 83.7 (80.0-100.0) fL MCH 27.5 (25.0-34.0) pg MCHC 32.8 (32.0-36.0) g/dL RDW Std Deviation 37.0 (36.4-46.3) fL RDW Coeff of Rosita 12.1 (11.5-14.5) % Plt Count 207 (130-400) K/uL MPV 9.2 L (9.4-12.4) fL Immature Gran % (Auto) 0.9 % Neut % (Auto) 84.1 % Lymph % (Auto) 5.8 % Stearns % (Auto) 8.6 % Eos % (Auto) 0.3 % Baso % (Auto) 0.3 % Neut # (Auto) 10.19 H (1.40-6.50) K/uL Lymph # (Auto) 0.71 L (1.20-3.40) K/uL Stearns # (Auto) 1.05 H (0.11-0.59) K/uL Eos # (Auto) 0.04 (0.00-0.50) K/uL Baso # (Auto) 0.04 (0.00-0.20) K/uL Immature Gran # (Auto) 0.11 (0.01-0.20) K/uL Dohle Bodies 1+ Sodium 134 L (136-145) mmol/L Potassium 4.2 (3.5-5.1) mmol/L Chloride 103 (98-107) mmol/L Carbon Dioxide 22 (21-32) mmol/L Anion Gap 9 (3-11) BUN 8 (6-23) mg/dl Creatinine 0.63 (0.6-1.4) mg/dl Est Cr Clr Drug Dosing 199.9 ml/min Est GFR ( Amer) 139.9 ml/min Est GFR (Non-Af Amer) 120.7 ml/min BUN/Creatinine Ratio 12.7 (10-20) Glucose 229 H (70-99(Fasting)) mg/dl Calcium 9.5 (8.6-10.3) mg/dl Magnesium 1.7 (1.7-2.4) mg/dl Total Bilirubin 1.0 (0.2-1.0) mg/dl AST 13 (13-39) U/L ALT 54 H (7-52) U/L Alkaline Phosphatase 73 (34-104) U/L Troponin I High Sens 4.7 (0-20) pg/ml Total Protein 7.0 (6.0-8.3) gm/dl Albumin 4.2 (3.4-5.0) gm/dl Globulin 2.8 (2.5-4.0) gm/dl Albumin/Globulin Ratio 1.5 (0.9-2) Lipase 7 L (11-82) U/L Procalcitonin Pending Adenovirus (PCR) Not Detected (NotDetected) B. pertussis DNA (PCR) Not Detected (NotDetected) B.parapertussis DNA PCR Not Detected (NotDetected) C. pneumoniae DNA (PCR) Not Detected (NotDetected) Coronavirus OC43 (PCR) Not Detected (NotDetected) Coronavirus HKU1 (PCR) Not Detected (NotDetected) Coronavirus 229E (PCR) Not Detected (NotDetected) SARS-CoV-2 (PCR) Not Detected (NotDetected) Coronavirus NL63 (PCR) Not Detected (NotDetected) Human Metapneumovir PCR Not Detected (NotDetected) Influenza Type A (PCR) Not Detected (NotDetected) Influenza Type B (PCR) Not Detected (NotDetected) M. pneumoniae (PCR) Not Detected (NotDetected) Parainfluenza 1 (PCR) Not Detected (NotDetected) Parainfluenza 2 (PCR) Not Detected (NotDetected) Parainfluenza 3 (PCR) Not Detected (NotDetected) Parainfluenza 4 (PCR) Not Detected (NotDetected) RSV (PCR) Not Detected (NotDetected) Entero/Rhino (PCR) DETECTED A* (NotDetected) Diagnostic Findings Chest X-Ray 03/08/23 01:23 XR chest 1V not portable CLINICAL HISTORY: Cough. COMPARISON STUDY: Chest radiograph December 07, 2017. FINDINGS: Lung volumes are normal. Left mid lung and basilar consolidation is present. There is no pneumothorax or pleural effusion. There is mild enlargement of the cardiac silhouette. Mediastinal contours are normal. There is no evidence for pulmonary edema. IMPRESSION: Left midlung and basilar consolidation consistent suggestive of pneumonia. Post treatment radiographs to ensure resolution are recommended. ACT 112: Negative or not required by law. Electronically signed by: Manny Lay M.D. 03/08/2023 6:48 AM Chest CTA 03/08/23 06:50 CT ANGIOGRAPHY OF THE CHEST, PULMONARY EMBOLUS PROTOCOL CLINICAL HISTORY: Cough. COMPARISON STUDY: Chest radiograph December 07, 2017 and March 08, 2023. TECHNIQUE: Following IV administration of 119 mL of Optiray, helical axial images of the chest were obtained utilizing the pulmonary embolus protocol. Maximal intensity projections and sagittal and coronal reformats were viewed on an independent 3D workstation. IV contrast was administered without complication. Automated exposure control was utilized for the study. A dose lowering technique was utilized adhering to the principles of ALARA. CT DOSE: 1947.22 mGy.cm FINDINGS: No pulmonary emboli are identified. Mild dilatation of the central pulmonary arteries is present. There is no thoracic aortic dissection. There is mild cardiomegaly. No pericardial effusion is present. Mildly enlarged left hilar lymph node measures 1.6 x 1.4 cm. There are prominent mediastinal lymph nodes. No pneumothorax or pleural effusion is present. No central obstructing mass is noted. There is extensive multifocal consolidation within the left upper and left lower lobes. No cavitation is present. There is no associated pleural effusion. A 1.7 cm nodular right middle lobe opacity on image 100 of 249 is present. No acute fractures within the bony thorax are present. There is hepatic steatosis. Mild splenomegaly is noted. IMPRESSION: 1. No pulmonary emboli identified. 2. Extensive left upper and left lower lobe airspace opacity suggestive of multifocal pneumonia. 3. 1.7 cm nodular right middle lobe opacity. This may be infectious or atelectatic. Although less likely, a neoplasm cannot be completely excluded. A follow-up chest CT in one to 2 months to ensure resolution is recommended. 4. Mildly enlarged mediastinal and left hilar lymph nodes which are likely reactive but should be assessed on follow-up chest CT to ensure resolution. 5. Mild cardiomegaly. 5. Hepatic steatosis. ACT 112: Positive. There are findings on this exam that require communication between the performing entity and the patient following Patient Test Result Information Act ([place] Act 112) guidelines. Electronically signed by: Manny Lay M.D. 03/08/2023 7:34 AM Code Status & VTE Plan Code Status Full VTE Prophylaxis Plan VTE Prophylaxis will be ordered: Yes Reason for no VTE drug order: Contraindicated PG Care Time/CCT Total # of Minutes Spent Total Time Spent with Patient: Total time spent is greater than 50% in coordination of care (as documented) at patient's floor/unit and/or counseling patient: Coding Level of Care Code 51522 INT INP/OBS CARE MIN Diagnoses Pneumonia J18.9 Hemoptysis R04.2 Asthma J45.909 Hepatic steatosis K76.0 Hypertension associated with diabetes E11.59; I15.2 Diabetes E11.9 Pulmonary nodule R91.1
[2023-03-08 08:41] LABS: Partial Thromboplastin Ratio 1.3; Partial Thromboplastin Time 36 Seconds (21-31); Prothrombin Time 10.9 Seconds (9.0-12.0)
[2023-03-08] MEDS ORDERED: CARBOHYDRATES FOR HYPOGLYCEMIA PO PRN (11:01)
[2023-03-08] MEDS ORDERED: ALUMINUM/MAGNESIUM SUSP 30 ML UDC PO PRN (11:01)
[2023-03-08] MEDS ORDERED: GLUCAGON FOR INJ 1 MG VIAL SQ PRN (11:01)
[2023-03-08] MEDS ORDERED: DEXTROSE 50% 50 ML SYRINGE IV PRN (11:01)
[2023-03-08] MEDS ORDERED: GLUCOSE 40% GEL 15 GM TUBE PO PRN (11:01)
[2023-03-08] MEDS ORDERED: POLYETHYLENE (MIRALAX) 17 GM PACK PO PRN (11:01)
[2023-03-08] MEDS ORDERED: GLUCOSE 10 TAB/TUBE PO PRN (11:01)
[2023-03-08] MEDS ORDERED: MELATONIN 3 MG TAB PO PRN (11:01)
[2023-03-08] MEDS ORDERED: MAGNESIUM HYDROXIDE SUSP 30 ML UDC PO PRN (11:01)
[2023-03-08] MEDS ORDERED: ONDANSETRON INJ 2 MG/ML 2 ML VIAL IV PRN (11:01)
[2023-03-08] MEDS ORDERED: PNEUMOCOCCAL VACCINE (PCV20) 20-VAL CONJ-DIP CRM/PF 0.5 ML SYR IM ONE (11:16)
[2023-03-08] MEDS: ACETAMINOPHEN 325 MG TAB PO PRN ×3 (11:45→21:56)
[2023-03-08] MEDS: LANTUS PER UNIT CHARGE SQ SCH (11:46)
[2023-03-08] MEDS: INSULIN ASPART PER UNIT CHARGE SC SCH ×3 (11:46→21:28)
[2023-03-08] MEDS: FLUoxetine HCL 20 MG CAP PO SCH (12:02)
[2023-03-08] MEDS: LOSARTAN POTASSIUM 50 MG TAB PO SCH (12:02)
--- NOTE | 2023-03-08 13:42 | Pulmonary Consultation ---
Date of Consultation March 08, 2023 Assessment & Plan (1) Pneumonia: (2) Pulmonary nodule: (3) Hemoptysis: Plan 42-year-old male with a history of metabolic syndrome and prior inhalational drug abuse who presented to the hospital with community-acquired pneumonia and hemoptysis. His hemoptysis appears to be resolving was likely secondary to bronchial mucosal injury from bronchial pneumonia and repeated coughing. He has a large left lower lobe infiltrate. He likely has bacterial pneumonia superimposed on viral infection. He does have exposures to moving [place] and [place] He does not necessarily have significant exposure to the [facility] region. I am doubtful of fungal infection, but this should remain on the differential if his symptoms and imaging do not resolve with time. I agree with azithromycin and Rocephin at this time for community-acquired pneumonia treatment. He can likely be transitioned to an oral third-generation cephalosporin and azithromycin tomorrow for a total treatment course of 7 days. No specific interventions required for his hemoptysis at this time as his symptoms are resolving. He will need a repeat CT chest scan in 6 to 8 weeks to follow-up on the left lower lobe infiltrate and the right sided 1.7 cm pleural-based lung nodule which is likely inflammatory. Thank you for the consult. Will follow with you. History of Present Illness Reason for Consultation: Community-acquired pneumonia with hemoptysis Attending Physician: Florida Liu MD History of Present Illness 42-year-old male with a past medical history of drug abuse (prior inhalational abusive methamphetamines 5 years, denies IV drug use), prior tobacco use, obesity, hypertension and GERD who presented to the hospital due to pleurisy and severe shortness of breath. Patient notes that this morning he had a cough and had a small amount of bright red blood admixed with phlegm when coughing. This is generally resolved over the afternoon. He feels that his lethargy and cough are improving overall. He denies any fever presently. He notes that his daughter and have been sick with viral illness for the past 2 weeks. His daughter goes to a daycare. 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 He and his both travel to [place] within the last month. He completed a course of azithromycin as an outpatient with no significant imp rovement of his symptoms. He had a chest CTA completed today which revealed a 1.7 cm nodule in the right middle lobe opacity and extensive left upper and lower lobe airspace opacities consistent with pneumonia. I reviewed the radiology report and agree with the assessment. Allergies Allergy/AdvReac Type Severity Reaction Status Date / Time No Known Allergies Allergy Verified 03/08/23 02:51 Home Medications Medication Instructions Recorded Confirmed Type ibuprofen 200 mg tablet (Advil) 200 - 600 mg PO DIRECTED PRN 12/07/17 03/08/23 History Pain multivitamin 1 tab PO DAILY 12/07/17 03/08/23 History omeprazole 40 mg capsule,delayed 40 mg PO DAILY PRN Acid Reflux 12/07/17 03/08/23 History release cetirizine 10 mg tablet (Zyrtec) 10 mg PO DAILY PRN allergies 02/23/23 03/08/23 History fluoxetine 40 mg capsule 80 mg PO QAM 02/23/23 03/08/23 History losartan 50 mg tablet 50 mg PO DAILY 02/23/23 03/08/23 History metformin 500 mg tablet 500 mg PO QAM 02/23/23 03/08/23 History Patient History Medical History (Updated 03/08/23 @ 08:30 by Florida Liu MD) Pulmonary nodule Myalgia Asthma Family History Other No significant family history Social History Smoking Status: Former smoker Tobacco Type: Cigarettes Do You Dip or Chew Tobacco: No; Hx Alcohol Use: No Hx Substance Use: Yes Last Used Substance Other:: 5 years sober Preferred Language: Armenian Communication Ability: Effective Nursing Home Social Worker Required: No Beliefs That Will Affect Care: None marital status: Current Living Situation: Spouse Other Information That Helps Us Care for You: No Feels Safe at Home: Yes Safety Concerns: Feels Safe At This Time Assistive Devices: Glasses Review of Systems Review of Systems: All systems reviewed & are unremarkable except as noted in HPI & below Physical Exam Physical Exam: Constitutional: Patient appears to be of their stated age. Patient is in no apparent distress. Patient is well-developed. Eyes: Pupils are equal round and reactive to light. Conjunctivae are normal. Anicteric sclera. Ears nose, mouth and throat: Mallampati class 2. Normal posterior oropharynx. Uvula is midline. Neck: Trachea is midline. Visual inspection is normal. Respiratory: Crackles noted in the left lung. No increased work of breathing. Cardiovascular: Regular rate and rhythm. No murmurs. No edema. Gastrointestinal: Normal bowel sounds, soft, nontender and nondistended. No hepatosplenomegaly noted. Musculoskeletal: No cyanosis. Patient is able to move all extremities. S trength is 5 out of 5 in the upper and lower extremities. Skin: No rashes, warm dry and intact. Neurologic: No obvious focal neurological deficits seen. Psychiatric: Alert and oriented x3 with a euthymic affect. Results & Data Results & Data Vital Signs (Past 12 Hours) Vital Signs Temp Pulse Pulse Pulse Pulse Pulse Resp 03/08/23 11:03 03/08/23 11:03 36.9 C 73 18 03/08/23 10:48 70 14 03/08/23 07:23 95 H 89 85 03/08/23 07:01 83 12 03/08/23 04:36 03/08/23 04:00 18 03/08/23 03:30 16 03/08/23 03:00 18 03/08/23 02:35 109 H 12 03/08/23 02:35 110 H Resp Resp Resp BP BP Pulse Ox Pulse Ox 03/08/23 11:03 03/08/23 11:03 129/76 94 03/08/23 10:48 130/78 96 03/08/23 07:23 20 18 18 94 03/08/23 07:01 139/79 95 03/08/23 04:36 93 03/08/23 04:00 157/99 H 92 03/08/23 03:30 103/73 93 03/08/23 03:00 144/91 H 93 03/08/23 02:35 138/80 92 03/08/23 02:35 Pulse Ox Pulse Ox O2 Del Method 03/08/23 11:03 Room Air 03/08/23 11:03 Room Air 03/08/23 10:48 Room Air 03/08/23 07:23 95 98 Room Air 03/08/23 07:01 Room Air 03/08/23 04:36 03/08/23 04:00 03/08/23 03:30 03/08/23 03:00 12/18/23 02:35 03/08/23 02:35 PG Care Time/CCT Total # of Minutes Spent Total Time Spent with Patient: Total time spent is greater than 50% in coordination of care (as documented) at patient's floor/unit and/or counseling patient: Coding Level of Care Code 93222 IN/OBS CONSULT LVL 4,60M Diagnoses Pneumonia J18.9 Pulmonary nodule R91.1 Hemoptysis R04.2
[2023-03-08] MEDS ORDERED: COUGH DROP (SUGAR FREE) LOZ 24 LOZ/1 BOX BUCCAL PRN (16:45)
[2023-03-08] MEDS ORDERED: KETOROLAC TROMETHAMINE 15 MG/ML VIAL IV PRN (17:44)
[2023-03-08] MEDS ORDERED: ALBUTEROL HFA 8 GM INHALER INH PRN (17:44)
[2023-03-09 06:38] LABS: Hematocrit (blood only) 35.9 % (42.0-52.0); Hemoglobin 11.9 g/dl (14.0-18.0); Mean Corpuscular Hemoglobin 27.5 pg (25.0-34.0); Mean Corpuscular Hgb Conc 33.1 g/dL (32.0-36.0); Mean Corpuscular Volume 83.1 fL (80.0-100.0); Mean Platelet Volume 9.2 fL (9.4-12.4); Platelet Count 246 K/uL (130-400); RDW Coefficient of Variation 12.2 % (11.5-14.5); RDW Standard Deviation 37.2 fL (36.4-46.3); Red Blood Count 4.32 M/uL (4.70-6.10); White Blood Count 8.12 K/ul (4.8-10.8)
[2023-03-09 07:15] LABS: BUN Creatinine Ratio 21.2 (10-20); Calcium 9.2 mg/dl (8.6-10.3); Creatinine Clr Calc Pharmacy 192.2 ml/min; Est GFR (African American) 137.2 ml/min; Est GFR (Non-African American) 118.4 ml/min
[2023-03-09 07:51] LABS: Estimated Average Glucose 117 mg/dl; Hemoglobin A1C 5.7 % (4.5-5.6)
[2023-03-09] MEDS: ACETAMINOPHEN 325 MG TAB PO PRN (07:58)
[2023-03-09] MEDS: LOSARTAN POTASSIUM 50 MG TAB PO SCH (08:07)
[2023-03-09] MEDS: FLUoxetine HCL 20 MG CAP PO SCH (08:07)
[2023-03-09] MEDS: LANTUS PER UNIT CHARGE SQ SCH (08:17)
[2023-03-09] MEDS: INSULIN ASPART PER UNIT CHARGE SC SCH ×2 (08:18→12:19)
[2023-03-09] MEDS ORDERED: cefTRIAXone SODIUM 2,000 MG in DEXTROSE 5% 50 ML IV SCH (09:00)
[2023-03-09] MEDS ORDERED: AZITHROMYCIN 500 MG in DEXTROSE 5% 250 ML IV SCH (09:00)
--- NOTE | 2023-03-09 13:01 | Discharge Summary ---
Date of Service date of admission - March 08, 2023 date of discharge - March 09, 2023 Admission HPI Per Admitting Provider Tolu is a 42-year-old man with history of type 2 diabetes on metformin, hypertension who was in his usual state of health until about 2 weeks ago when he caught a cold from his toddler. She is in daycare and has had viral symptoms recently. This was a typical URI with head cold type symptoms and cough he did take an unspecified oral antibiotic as an outpatient. He then was okay until Wednesday night which is 3 days ago when he developed symptoms of fever chills myalgias arthralgias and cough. Last night he became short of breath, he was feeling extremely short of breath when lying down and he also developed central and left-sided specifically left posterior chest pain with breathing. He came to the ED for evaluation he was positive for rhinovirus and enterovirus there is a question of left-sided infiltrate on his chest x-ray but it did not look severe. He was not hypoxic he was given nebulizers Toradol and Tylenol as well as IV fluids. He then told the ED staff he had been having hemoptysis. He had 2 episodes of hemoptysis in the ED each was described as bright red bloody spit/sputum approximately [address] angiogram of the chest was obtained and it was negative for pulmonary embolism but he had dense extensive left upper lobe and left lower lobe consolidation consistent with a pneumonia. Ceftriaxone and azithromycin were started and he was given 10 mg of IV dexamethasone. With the ED treatment his left-sided chest and back pain has significantly improved. He feels like his breathing is also improved He has had no other associated symptoms including no rashes, no arthritis, no nausea vomiting or diarrhea, no abdominal pain, no dysuria, no leg swelling Principal Diagnosis 1. community-acquired pneumonia 2nd to H. flu 2. 1.7 cm nodular right middle lobe opacity - follow-up needed 3. recent rhinovirus infection Discharge Exam gen - NAD, looks good mouth - MMM neck - no JVD heart - RRR, s1 s2, no murmur lungs - minimal L basilar rales, no wheezing, otherwise CTA b/l; no distress abd - soft NT ND BS+ ext - no edema, pulses 2+ b/l psych - a/o x 3 Discharge Data Allergies Allergy/AdvReac Type Severity Reaction Status Date / Time No Known Allergies Allergy Verified 03/08/23 02:51 Consultations [facility] [place] Pulmonology Ordered Studies Chest X-Ray 03/08/23 01:23 XR chest 1V not portable CLINICAL HISTORY: Cough. COMPARISON STUDY: Chest radiograph December 07, 2017. FINDINGS: Lung volumes are normal. Left mid lung and basilar consolidation is present. There is no pneumothorax or pleural effusion. There is mild enlargement of the cardiac silhouette. Mediastinal contours are normal. There is no evidence for pulmonary edema. IMPRESSION: Left midlung and basilar consolidation consistent suggestive of pneumonia. Post treatment radiographs to ensure resolution are recommended. ACT 112: Negative or not required by law. Electronically signed by: Manny Lay M.D. 03/08/2023 6:48 AM Chest CTA 03/08/23 06:50 CT ANGIOGRAPHY OF THE CHEST, PULMONARY EMBOLUS PROTOCOL CLINICAL HISTORY: Cough. COMPARISON STUDY: Chest radiograph December 07, 2017 and March 08, 2023. TECHNIQUE: Following IV administration of 119 mL of Optiray, helical axial images of the chest were obtained utilizing the pulmonary embolus protocol. Maximal intensity projections and sagittal and coronal reformats were viewed on an independent 3D workstation. IV contrast was administered without complication. Automated exposure control was utilized for the study. A dose lowering technique was utilized adhering to the principles of ALARA. CT DOSE: 1947.22 mGy.cm FINDINGS: No pulmonary emboli are identified. Mild dilatation of the central pulmonary arteries is present. There is no thoracic aortic dissection. There is mild cardiomegaly. No pericardial effusion is present. Mildly enlarged left hilar lymph node measures 1.6 x 1.4 cm. There are prominent mediastinal lymph nodes. No pneumothorax or pleural effusion is present. No central obstructing mass is noted. There is extensive multifocal consolidation within the left upper and left lower lobes. No cavitation is present. There is no associated pleural effusion. A 1.7 cm nodular right middle lobe opacity on image 100 of 249 is present. No acute fractures within the bony thorax are present. There is hepatic steatosis. Mild splenomegaly is noted. IMPRESSION: 1. No pulmonary emboli identified. 2. Extensive left upper and left lower lobe airspace opacity suggestive of multifocal pneumonia. 3. 1.7 cm nodular right middle lobe opacity. This may be infectious or atelectatic. Although less likely, a neoplasm cannot be completely excluded. A follow-up chest CT in one to 2 months to ensure resolution is recommended. 4. Mildly enlarged mediastinal and left hilar lymph nodes which are likely reactive but should be assessed on follow-up chest CT to ensure resolution. 5. Mild cardiomegaly. 5. Hepatic steatosis. ACT 112: Positive. There are findings on this exam that require communication between the performing entity and the patient following Patient Test Result Information Act ([place] Act 112) guidelines. Electronically signed by: Manny Lay M.D. 03/08/2023 7:34 AM Hospital Course (1) Pneumonia: Extensive left-sided pneumonia as seen on CXR and CT chest. Sputum culture with H. flu, beta-lactamase negative. This pneumonia occurred in the setting of rhinovirus infection which he had about 1-2 weeks prior to admission. Blood cultures were negative while here. He was seen by [facility] [place] Pulmonology. He will need close f/u with them due to the RML nodule seen on CT chest as well as hemoptysis. He received IV rocephin during the stay, and will complete a course of PO augmentin at discharge. O2 sats in room air were normal on day of discharge. He will follow-up with [facility] [place] Pulmonology within a few weeks of discharge. (2) Rhinovirus infection: Occurred 1-2 weeks prior to this admission. This viral infection was complicated by #1 above. (3) Hemoptysis: Likely 2nd to pneumonia. Improved prior to discharge home. This will need to be followed carefully in the first few days upon return home. Due to the RML pulmonary nodule seen on CT chest he will need close [facility] Pulmonology follow-up as well as repeat chest CT in 2 months. (4) Asthma: Mild, intermittent. No exacerbation during the stay. Albuterol prn. (5) Hepatic steatosis: Noted on chest CT. Obesity with BMI 35 Rx - weight loss. (6) Hypertension associated with diabetes: Continue losartan at discharge. (7) Diabetes: Hba1c 5.7% this admission. He is really only a pre-diabetic at this time. HOLD metformin at discharge due to IV CT contrast given during this hospitalization. Will need repeat BMP in 48 hours after hospital discharge to ensure stability of creatinine. If creatinine remains stable can resume metformin at that time. (8) Pulmonary nodule: 1.7 cm nodular right middle lobe opacity will need f/u CT chest in 2 months to re-evaluate this nodule Total Time Total Time Spent Total Time Spent (In Minutes): 25 Discharge Plan Discharge Items Patient Disposition: Home - Self-Care Reason For Visit: PNEUMONIA Discharge Diagnosis: 1. bilateral pneumonia - worse on left 2. viral testing positive for "rhinovirus" (very common cause of colds/cough) 3. sputum culture growing a bacterium called "haemophilus" (common cause of bacterial pneumonia) 4. hemoptysis (blood in spit) - due to #1 Activity: As commented below Activity Comment: gradually increase activities over the next 7-10 days Exercise/Sports: Wait until after follow-up appointment Non-emergency contact: Primary Care Provider and Manager Services Call non-emergency contact if: you have any medication questions, your symptoms worsen and your temperature is above 101 Follow-up/Referrals: Gaudencio Frey MD [Physician] - (Office will call patient with appointment date and time) Alexy Farnsworth [Primary Care Provider] - (Office will call patient with appointment date and time) Diet: Carb Consistent or DM2 Addtl Attending Provider Instructions: Mr Dhillon, Luis were hospitalized due to pneumonia. The majority of the pneumonia is in the left lung with a very small amount in the right lung. Your viral respiratory panel was positive for a virus called "rhinovirus." I suspect that you and your family had this virus over the last couple of weeks at home. It is a common virus in both children and adults; it causes the "common cold" in most people. There are times when people develop bacterial pneumonia while they are recovering from a viral infection. This is likely what happened in your case. Your sputum culture is growing a type of bacteria called "haemophilus." This is a common cause of bacterial pneumonias. The blood in your spit was likely due to the pneumonia itself. Recommendations - 1. antibiotics for your pneumonia - * amoxicillin-clavulanate 875mg twice daily x 5 days - first dose AM of 03/10/23 2. probiotics - this may help prevent diarrhea from your antibiotics; take 1 probiotic supplement daily x 7 days, first dose today. I have prescribed this for you in addition to the amoxicillin. 3. for cough/congestion you may take - * [id number] mucinex, 1200mg up to twice daily as needed * albuterol inhaler - 2 puffs every 4 hours as needed for cough/wheezing 4. you likely have another 1-2 weeks of recovery ahead from your pneumonia. Gradually increase your activities as tolerated over the next 1-2 weeks. 5. you will need a repeat CT scan of the chest in 6-8 weeks to re-examine the pneumonia. Please have your family doctor arrange this for you. Please request to have this done at [facility]. 6. although it is unlikely that you are contagious to others from the rhinovirus infection or your pneumonia at this time, while recovering I would recommend wearing a mask outside of your home for about 1-2 weeks. 7. continue the incentive spirometer device a few times a day for the next few days. 8. please HOLD your metformin at this time. You will need a repeat blood draw TOMORROW - 03/10/23 - to recheck your kidney function level. If the repeat blood draw returns normal you will be able to resume metformin on 03/11/23. You can have the blood work at the [facility] office or the main hospital laboratory at [facility]. 9. it is possible you could have a little more of the blood in the spit over the next few days. As long as the amounts are SMALL in quantity there should be nothing to do for this. HOWEVER, if there are large amounts of blood (more than a teaspoon or two) in the spit, please let your family doctor know right away. The blood is likely from the pneumonia itself. Follow-up - see separate section Return to [facility] if - * you have worsening blood in the spit / large amounts of blood in the spit * you have shortness of breath * you have chest pains * you have fevers over 101 degrees * you develop severe diarrhea * any other concerns It was our pleasure to care for you! Pending Studies at Discharge: Yes Studies:: blood and sputum cultures Stand-Alone Forms: My [facility] [employer], Smoking Cessation Medications and DC Order Prescriptions: Continued multivitamin Tablet 1 tab PO DAILY omeprazole 40 mg Capsule,Delayed Release(Dr/Ec) 40 mg PO DAILY PRN (Reason: Acid Reflux) ibuprofen [Advil] 200 mg Tablet 200 - 600 mg PO DIRECTED PRN (Reason: Pain) fluoxetine 40 mg Capsule 80 mg PO QAM cetirizine [Zyrtec] 10 mg Tablet 10 mg PO DAILY PRN (Reason: allergies) losartan 50 mg Tablet 50 mg PO DAILY Held metformin 500 mg Tablet 500 mg PO QAM Hold Instructions: hold until your kidney function level has been rechecked Discharge Orders: Discharge Order (Routine); Ordered 03/09/23 Ordered By: Humberto Vazquez Admission Data Admit Date/Time: 03/08/23 09:52 Attending Provider: Humberto Vazquez Admit Provider: [place] Liu Primary Care Provider: Alexy Farnsworth Other Providers: [place] Liu; Raman Saucedo; Gaudencio Frey; Jorge Sanchez; Amanda Monroy; Elba Segura; Tatiana Pierre; Benson Montero; Dinesh Stewart; Aarti Kaur Other Interventions: Discharge Summary Assessment (RN) Last Done: 03/09/23 12:58 Coding Level of Care Code 71023 IN/OBS DISCH 30 MIN/LESS Diagnoses Pneumonia J18.9 Rhinovirus infection B34.8 Hemoptysis R04.2 Asthma J45.909 Hepatic steatosis K76.0 Hypertension associated with diabetes E11.59; I15.2 Diabetes E11.9 Pulmonary nodule R91.1
--- NOTE | 2023-03-09 13:57 | Pulmonology Progress Note ---
Date of Service March 09, 2023 Assessment & Plan (1) Pneumonia: Plan: Sputum cultures growing haemophilus species. Agree with transitioning to oral Augmentin for a 7 to 10-day course of antibiotics. Patient is significantly improved and stable for discharge home today. (2) Pulmonary nodule: Plan: Patient will require a follow-up CT chest without contrast in 6 to 8 weeks given the extent of multifocal pneumonia in the left lung and right middle lobe infiltrate. (3) Hemoptysis: Plan: Resolved. Likely secondary to bronchial pneumonia. Plan Discussed with Dr. Vazquez outside patient room. Thank you for the consult. Admission and Anticipated Discharge Date Admission Date: March 08, 2023 Subjective Patient feeling greatly improved. Denies any shortness of breath. No further hemoptysis. Chest pain has improved as well. No fevers, chills or night sweats. Walking around the room air Review of Systems Review of Systems: All systems reviewed & are unremarkable except as noted in HPI & below Physical Exam Physical Exam: Constitutional: Patient appears to be of their stated age. Patient is in no apparent distress. Patient is well-developed. Eyes: Pupils are equal round and reactive to light. Conjunctivae are normal. Anicteric sclera. Ears nose, mouth and throat: Mallampati class 2. Normal posterior oropharynx. Uvula is midline. Neck: Trachea is midline. Visual inspection is normal. Respiratory: Clear to auscultation bilaterally. No wheezes. Cardiovascular: Regular rate and rhythm. No murmurs. No edema. Gastrointestinal: Normal bowel sounds, soft, nontender and nondistended. No hepatosplenomegaly noted. Musculoskeletal: No cyanosis. Patient is able to move all extremities. Strength is 5 out of 5 in the upper and lower extremities. Skin: No rashes, warm dry and intact. Neurologic: No obvious focal neurological deficits seen. Psychiatric: Alert and oriented x3 with a euthymic affect. Results & Data Results & Data Vital Signs (Past 12 Hours) Vital Signs Temp Pulse Resp BP Pulse Ox O2 Del Method 03/09/23 09:14 Room Air 03/09/23 07:30 36.6 C 72 18 131/81 96 Room Air PG Care Time/CCT Total # of Minutes Spent Total Time Spent with Patient: Total time spent is greater than 50% in coordination of care (as documented) at patient's floor/unit and/or counseling patient: Coding Level of Care Code 80532 SUB INP/OBS CARE MIN Diagnoses Pneumonia J18.9 Pulmonary nodule R91.1 Hemoptysis R04.2
--- NOTE | 2023-03-09 22:59 | Electrocardiogram Report ---
Test Reason : Blood Pressure : / mmHG Vent. Rate : 102 BPM Atrial Rate : 102 BPM P-R Int : 180 ms QRS Dur : 094 ms QT Int : 318 ms P-R-T Axes : 025 017 039 degrees QTc Int : 414 ms Sinus tachycardia Otherwise normal ECG When compared with ECG of 07-DEC-2017 02:40, No significant change was found Confirmed by Alireza Vitale ([id number]) on 03/09/2023 10:58:57 PM Referred By: REFERRED SELF Confirmed By:Alireza Vitale
== END 2023-03-09 14:52 | disposition home or self-care (01) | DRG 194 ==
LOC: ED 01:09 → 3E 09:52 → INTOOBSV 09:52 → SUATTDRO 09:52 → 3E 10:48